=== PATIENT | male | born 1945 | race Caucasian/White ===

== ENCOUNTER 2016-10-29 18:04 | Inpatient (IN) | payer MEDICARE ==
[~2016-10-29] VITALS: Ht 175.3 cm; Wt 124.9 kg
[~2016-10-29 18:04] MED LIST: AMLO10 PO; ATEN-102 PO; ATOR40TA PO; CVS20TAB PO; GABA300C3 PO; INSU100V2 IJ; LANTUSP SQ; LASI20TA PO; LISI-366 PO; POTA-243 PO; POTA75TA PO; SERT-129 PO; WARF5TAB PO; Z.0.OXYGENDME NC
[2016-10-29 18:15] VITALS: BP 198/107; PULSE 85; RESP 19; TEMP 99.2; O2SAT 88
[2016-10-29 18:23] VITALS: O2SAT 88
[2016-10-29] MEDS ORDERED: methylPREDNISolone SOD SUCC 125 MG/2 ML VIAL IVP ONE (18:30)
[2016-10-29] MEDS ORDERED: SODIUM CHLORIDE 0.9% FLUSH 5 ML FLUSH IVF PRN (18:30)
[2016-10-29] MEDS ORDERED: FUROSEMIDE 40 MG/4 ML VIAL IVP ONE (18:30)
[2016-10-29] MEDS: RESP: ALBUTEROL 2.5 MG/IPRATROPIUM 0.5 MG NEB (SCH) INH ×2 (18:41→18:42)
--- NOTE | 2016-10-29 18:46 | RADHPO ---
EXAM DATE/TIME: 10/29/2016 18:25 [place] COMPARISON: CHEST SINGLE AP, February 13, 2016, 20:30. INDICATIONS : Shortness of breath since yesterday. MEDICAL HISTORY : Hypertension. Chronic obstructive pulmonary disease. Diabetes mellitus type II. Congestive heart failure. SURGICAL HISTORY : Cardiac stent. ENCOUNTER: Initial ACUITY: 2 days PAIN SCORE: 3/10 LOCATION: Bilateral chest FINDINGS: The heart size is within normal limits. The lungs demonstrate diffuse mixed interstitial and alveola r consolidation. Significant effusions are note clearly identified. CONCLUSION: Diffuse consolidation likely representing edema. Danie Hidalgo MD on October 29, 2016 at 18:39 Board Certified Radiologist. This report was verified electronically.
[2016-10-29 18:48] LABS: AUTOMATED NEUTROPHIL # 6.5 TH/MM3 (1.8-7.7); BASOPHIL % 0.4 % (0.0-2.0); EOSINOPHIL # 0.1 TH/MM3 (0-0.4); EOSINOPHIL % 1.1 % (0.0-4.0); HEMATOCRIT 36.2 % (39.0-51.0); HEMO FLAGS DIFF FINAL; LYMPH % 12.9 % (9.0-44.0); LYMPHOCYTE # 1.1 TH/MM3 (1.0-4.8); MEAN CELL VOLUME 88.7 FL (80.0-100.0); MEAN CORPUSCULAR HEMOGLOBIN 29.5 PG (27.0-34.0); MEAN CORPUSCULAR HGB CONC 33.3 % (32.0-36.0); MONO % 8.8 % (0.0-8.0); NEUT % 76.8 % (16.0-70.0); PLATELET COUNT 186 TH/MM3 (150-450); RED BLOOD COUNT 4.08 MIL/MM3 (4.50-5.90); RED CELL DISTRIBUTION WIDTH 13.7 % (11.6-17.2); WHITE BLOOD COUNT 8.5 TH/MM3 (4.0-11.0)
--- NOTE | 2016-10-29 18:48 | PD ---
HPI Chief Complaint: Respiratory Symptoms Time Seen by Provider: 18:14 Travel History International Travel<30 days: No Contact w/Intl Traveler<30days: No Traveled to known affect area: No History of Present Illness HPI The patient is a 71 year-old male who presents to the emergency department for shortness of breath. The patient states his shortness of breath started yesterday has progressively worsened. The patient states he has exertional shortness of breath, occasional anterior chest tightness, and a dry nonproductive cough. The patient denies any history of COPD, does have a history congestive heart failure. The patient is followed by physicist solid earth, Dr. Doyle, and a community reinvestment act officer, Dr. Maldonado. The patient's primary physician is at the [place] clinic. The patient states his symptoms are worse with exertion, mildly alleviated at rest, and he denies any outright orthopnea. The patient does not currently smoke. He does complain of chronic lower extremity edema. PFSH Past Medical History Hx Anticoagulant Therapy: Yes Arthritis: Yes Asthma: No Atrial Fibrillation: Yes Blood Disorders: No Depression: Yes Heart Rhythm Problems: Yes (PVC'S, 3RD DEGREE HEART BLOCK) Cancer: Yes (SKIN CANCER NOSE AND LEFT EAR, BACK) Cardiac Catheterization: Yes (JUNE 2008) Cardiovascular Problems: Yes High Cholesterol: Yes Chest Pain: Yes (06/21/08 CARDIAC CATH STENTS PLACED) Congestive Heart Failure: No COPD: Yes Cerebrovascular Accident: No Coronary Artery Disease: Yes Diabetes: Yes Patient Takes Glucophage: Yes Diminished Hearing: No Endocrine: Yes Genitourinary: No Headaches: Yes Hypertension: Yes Immune Disorder: No Implanted Vascular Access Dvce: No Musculoskeletal: Yes Neurologic: Yes Psychiatric: No Reproductive: No Respiratory: Yes Migraines: No Myocardial Infarction: Yes (X1) Seizures: No Sleep Apnea: Yes (CPAP MACHINE AT HOME) Thyroid Disease: No Past Surgical History Abdominal Surgery: No Cardiac Surgery: Yes (EP STUDY FOR CARDIAC RHYTHYM PROBLEMS) Coronary Stent: Yes (X1 STENT) Ear Surgery: No Endocrine Surgery: No Eye Surgery: No Genitourinary Surgery: No Gynecologic Surgery: No Oral Surgery: No Thoracic Surgery: No Other Surgery: Yes (CYST REMOVED FROM BACK AND LEFT OUT EAR AND NOSE CANCER REMOVED/BASEL CELL) Social History Alcohol Use: No (ALLERGIC TO ALCOHOL) Tobacco Use: No (QUIT JUL 24, 2015) Substance Use: No Allergies-Medications (Allergen,Severity, Reaction): Coded Allergies: No Known Allergies (Verified , 10/29/16) Reported Meds & Prescriptions Reported Meds & Active Scripts Active Reported Omeprazole 20 Mg Tab 20 Mg PO DAILY Furosemide 20 Mg Tab 20 Mg PO DAILY Atorvastatin (Atorvastatin Calcium) 80 Mg Tab 80 Mg PO HS Sertraline (Sertraline HCl) 100 Mg Tab 100 Mg PO DAILY Terazosin (Terazosin HCl) 2 Mg Cap 2 Mg PO HS Gabapentin 600 Mg Tab 600 Mg PO BID Amlodipine (Amlodipine Besylate) 5 Mg Tab 5 Mg PO DAILY Lubricant Opth Drops (Carboxymethylcellulose Sodium Opth Drops) 0.5% Drops 1 Drop EACH EYE QID Warfarin 5 Mg Tab 5 Mg PO DIRECTED Warfarin 2.5 Mg Tab 2.5 Mg PO DIRECTED M, W, F Metformin (Metformin HCl) 500 Mg Tab 500 Mg PO BIDPC With meals Potassium Chloride ER (Potassium Chloride) 10 Meq Cap 10 Meq PO DAILY Review of Systems Except as stated in HPI: all other systems reviewed are Neg General / Constitutional: No: Fever Cardiovascular: Positive: Chest Pain or Discomfort (tightness in the lower lungs is worse with inspiration), Dyspnea on exertion Respiratory: Positive: Cough, Shortness of Breath, Pleuritic Pain, No: Orthopnea Gastrointestinal: No: Nausea Musculoskeletal: Positive: Edema Neurologic: No: Dizziness Physical Exam Narrative GENERAL: Awake, alert, pleasant 71-year-old male who appears his stated age and is in mild respiratory distress. SKIN: Warm and dry. HEAD: Atraumatic. Normocephalic. EYES: No injection or drainage. ENT: No nasal bleeding or discharge. Mucous membranes pink and moist. NECK: Trachea midline. No JVD. CARDIOVASCULAR: Regular rate and rhythm. No murmur appreciated. RESPIRATORY: Mild tachypnea with a respiratory rate of 22. Diminished breath sounds in the bases with crackles bilaterally. GASTROINTESTINAL: Abdomen soft, non-tender, nondistended. Obese, no rebound tenderness. MUSCULOSKELETAL: No obvious deformities. No clubbing. No cyanosis. Bilateral lower extremity pitting edema. NEUROLOGICAL: Awake and alert. No obvious cranial nerve deficits. Motor grossly within normal limits. Normal speech. PSYCHIATRIC: Appropriate mood and affect; insight and judgment normal. Data Data Last Documented VS Vital Signs Date Time Temp Pulse Resp B/P Pulse Ox O2 Delivery O2 Flow Rate FiO2 10/29/16 19:21 88 18 210/74 95 Nasal Cannula 2 10/29/16 18:15 99.2 Orders Complete Blood Count With Diff (10/29/16 18:20) Comprehensive Metabolic Panel (10/29/16 18:20) B-Type Natriuretic Peptide (10/29/16 18:20) Act Partial Throm Time (Ptt) (10/29/16 18:20) Prothrombin Time / Inr (Pt) (10/29/16 18:20) Magnesium (Mg) (10/29/16 18:20) Ckmb (Isoenzyme) Profile (10/29/16 18:20) Troponin I (10/29/16 18:20) Iv Access Insert/Monitor (10/29/16 18:20) Electrocardiogram (10/29/16 18:20) Ecg Monitoring (10/29/16 18:20) Oximetry (10/29/16 18:20) Oxygen Administration (10/29/16 18:20) Chest, Single Ap (10/29/16 18:20) Sodium Chloride 0.9% Flush (Ns Flush) (10/29/16 18:30) Furosemide Inj (Lasix Inj) (10/29/16 18:30) Methylprednisolone So Succ Inj (Solumedr (10/29/16 18:30) Albuterol-Ipratropium Neb (Duoneb Neb) (10/29/16 18:30) CKMB (10/29/16 18:32) CKMB% (10/29/16 18:32) Ceftriaxone Inj (Rocephin Inj) (10/29/16 20:00) Azithromycin Inj (Zithromax Inj) (10/29/16 20:00) Admit To Inpatient (10/29/16 ) Vital Signs (Adult) Q4H (10/29/16 19:53) Activity Oob With Assistance (10/29/16 19:53) Environmental Issues Instructor / Telemetry .CONTINUOUS (10/29/16 19:53) Intake + Output MARISSA.QSHIFT (10/29/16 19:53) Sodium Chloride 0.9% Flush (Ns Flush) (10/29/16 20:00) Sodium Chloride 0.9% Flush (Ns Flush) (10/29/16 21:00) Basic Metabolic Panel (Bmp) (10/30/16 06:00) Complete Blood Count With Diff (10/30/16 06:00) Pt Request For Service (10/29/16 19:53) Naloxone Inj (Narcan Inj) (10/29/16 20:00) Inpatient Certification (10/29/16 ) Furosemide Inj (Lasix Inj) (10/30/16 09:00) Potassium Chloride Eff (K-Lyte Cl Eff) (10/29/16 20:00) Creatine Kinase (Cpk) (10/30/16 00:30) Creatine Kinase (Cpk) (10/30/16 06:30) Troponin I (10/30/16 00:30) Troponin I (10/30/16 06:30) Electrocardiogram (10/30/16 00:30) Electrocardiogram (10/30/16 06:30) Bedside Glucose MARISSA.AC&HS (10/29/16 19:56) ^ Blood Glucose Goal (Criteria (10/29/16 19:56) ^ Hypoglycemia 51 - 69 Mg/Dl (10/29/16 19:56) ^ Hypoglycemia 50 Mg/Dl Or < (10/29/16 19:56) ^ Notify Dr: Other (10/29/16 19:56) Dextrose 50% In Dora (Vial) Inj (D50w (Vi (10/29/16 20:00) Glucagon Inj (Glucagon Inj) (10/29/16 20:00) Insulin Aspart Supplemtl Scale (Novolog (10/29/16 21:00) Diet 1800 Ada Cons Carb (10/30/16 Breakfast) Admit Order (Ed Use Only) (10/29/16 19:56) Labs Laboratory Tests Test 10/29/16 18:32 White Blood Count 8.5 TH/MM3 Red Blood Count 4.08 MIL/MM3 Hemoglobin 12.1 GM/DL Hematocrit 36.2 % Mean Corpuscular Volume 88.7 FL Mean Corpuscular Hemoglobin 29.5 PG Mean Corpuscular Hemoglobin 33.3 % Concent Red Cell Distribution Width 13.7 % Platelet Count 186 TH/MM3 Mean Platelet Volume 10.3 FL Neutrophils (%) (Auto) 76.8 % Lymphocytes (%) (Auto) 12.9 % Monocytes (%) (Auto) 8.8 % Eosinophils (%) (Auto) 1.1 % Basophils (%) (Auto) 0.4 % Neutrophils # (Auto) 6.5 TH/MM3 Lymphocytes # (Auto) 1.1 TH/MM3 Monocytes # (Auto) 0.8 TH/MM3 Eosinophils # (Auto) 0.1 TH/MM3 Basophils # (Auto) 0.0 TH/MM3 CBC Comment DIFF FINAL Differential Comment Prothrombin Time 28.6 SEC Prothromb Time International 2.5 RATIO Ratio Activated Partial 37.6 SEC Thromboplast Time Sodium Level 143 MEQ/L Potassium Level 3.5 MEQ/L Chloride Level 107 MEQ/L Carbon Dioxide Level 27.3 MEQ/L Anion Gap 9 MEQ/L Blood Urea Nitrogen 11 MG/DL Creatinine 1.00 MG/DL Estimat Glomerular Filtration 74 ML/MIN Rate Random Glucose 192 MG/DL Calcium Level 8.3 MG/DL Magnesium Level 1.7 MG/DL Total Bilirubin 0.5 MG/DL Aspartate Amino Transf 14 U/L (AST/SGOT) Alanine Aminotransferase 27 U/L (ALT/SGPT) Alkaline Phosphatase 85 U/L Total Creatine Kinase 191 U/L Creatine Kinase MB 2.8 NG/ML Troponin I LESS THAN 0.02 NG/ML B-Type Natriuretic Peptide 157 PG/ML Total Protein 6.8 GM/DL Albumin 3.4 GM/DL [facility] Medical Decision Making Medical Screen Exam Complete: Yes Emergency Medical Condition: Yes Medical Record Reviewed: Yes Interpretation(s) EKG reveals normal sinus rhythm with a rate of 79. Q wave noted in lead 3. Inverted T-wave noted in lead aVL. Last Impressions Chest X-Ray 10/29/16 1820 Signed Impressions: Service Date/Time: Saturday, October 29, 2016 18:25 - CONCLUSION: Diffuse consolidation likely representing edema. Danie Hidalgo MD Laboratory Tests Test 10/29/16 18:32 White Blood Count 8.5 TH/MM3 Red Blood Count 4.08 MIL/MM3 Hemoglobin 12.1 GM/DL Hematocrit 36.2 % Mean Corpuscular Volume 88.7 FL Mean Corpuscular Hemoglobin 29.5 PG Mean Corpuscular Hemoglobin 33.3 % Concent Red Cell Distribution Width 13.7 % Platelet Count 186 TH/MM3 Mean Platelet Volume 10.3 FL Neutrophils (%) (Auto) 76.8 % Lymphocytes (%) (Auto) 12.9 % Monocytes (%) (Auto) 8.8 % Eosinophils (%) (Auto) 1.1 % Basophils (%) (Auto) 0.4 % Neutrophils # (Auto) 6.5 TH/MM3 Lymphocytes # (Auto) 1.1 TH/MM3 Monocytes # (Auto) 0.8 TH/MM3 Eosinophils # (Auto) 0.1 TH/MM3 Basophils # (Auto) 0.0 TH/MM3 CBC Comment DIFF FINAL Differential Comment Prothrombin Time 28.6 SEC Prothromb Time International 2.5 RATIO Ratio Activated Partial 37.6 SEC Thromboplast Time Sodium Level 143 MEQ/L Potassium Level 3.5 MEQ/L Chloride Level 107 MEQ/L Carbon Dioxide Level 27.3 MEQ/L Anion Gap 9 MEQ/L Blood Urea Nitrogen 11 MG/DL Creatinine 1.00 MG/DL Estimat Glomerular Filtration 74 ML/MIN Rate Random Glucose 192 MG/DL Calcium Level 8.3 MG/DL Magnesium Level 1.7 MG/DL Total Bilirubin 0.5 MG/DL Aspartate Amino Transf 14 U/L (AST/SGOT) Alanine Aminotransferase 27 U/L (ALT/SGPT) Alkaline Phosphatase 85 U/L Total Creatine Kinase 191 U/L Creatine Kinase MB 2.8 NG/ML Troponin I LESS THAN 0.02 NG/ML B-Type Natriuretic Peptide 157 PG/ML Total Protein 6.8 GM/DL Albumin 3.4 GM/DL Differential Diagnosis Differential diagnosis includes congestive heart failure, flash pulmonary edema , pleural effusion, acute coronary syndrome, COPD, bronchitis, pneumonia, pulmonary embolism. Narrative Course IV was established, labs are drawn and sent, and the patient was placed on cardiac telemetry monitoring and continuous pulse oximeter monitoring. EKG was ordered and interpreted. Chest x-ray was ordered. The patient was administered duo nebs 2 and Lasix 40 mg intravenously. Chest x-ray reveals bilateral pulmonary edema most likely consistent with congestive heart failure. The patient's initial oxygen saturation was 88% on room air, therefore, was placed on 2 L which brought his oxygen saturation up to 92% with improvement of his symptoms. The patient's BNP was only 157, troponin was negative at 0.02. The patient appears to have mild congestive heart failure, atypical pneumonia would be another possibility. Therefore, patient was covered with Rocephin and Zithromax. The patient does have hypoxia, therefore, will require admission, gentle diuresis, and possible follow-up with his community reinvestment act officer, Dr. Maldonado. [facility]. Physician Communication Physician Communication The patient's primary [facility] [place] [facility], [facility] I discussed the patient with Dr. Blankenship who agrees with admission. Diagnosis Primary Impression: CHF (congestive heart failure) Qualified Code: I50.9 - Acute congestive heart failure, unspecified congestive heart failure type Additional Impression: Hypoxia Condition: Stable Carlos Sagastume MD Oct 29, 2016 18:47
[2016-10-29] MEDS ORDERED: TERA2CAP3 PO (18:49)
[2016-10-29] MEDS ORDERED: GABA600T PO (18:49)
[2016-10-29] MEDS ORDERED: WARF-23 PO (18:49)
[2016-10-29] MEDS ORDERED: WARF-18 PO (18:49)
[2016-10-29] MEDS ORDERED: FURO20TA PO (18:49)
[2016-10-29] MEDS ORDERED: ATOR1TAB18 PO (18:49)
[2016-10-29] MEDS ORDERED: POTA10CA PO (18:49)
[2016-10-29] MEDS ORDERED: SERT-129 PO (18:49)
[2016-10-29] MEDS ORDERED: AMLO5TAB2 PO (18:49)
[2016-10-29] MEDS ORDERED: LUBR0.5D2 EACH EYE (18:49)
[2016-10-29] MEDS ORDERED: METF500T PO (18:49)
[2016-10-29] MEDS ORDERED: OMEP20TA PO (18:49)
[2016-10-29 18:56] LABS: CHLORIDE 107 MEQ/L (98-107); POTASSIUM 3.5 MEQ/L (3.5-5.1); SODIUM (NA) 143 MEQ/L (136-145)
[2016-10-29 19:00] LABS: ANION GAP 9 MEQ/L (5-15); APTT (PATIENT) 37.6 SEC (24.3-30.1); BICARBONATE 27.3 MEQ/L (21.0-32.0); BLOOD UREA NITROGEN 11 MG/DL (7-18); INTERNATIONAL NORMALIZED RATIO 2.5 RATIO; MAGNESIUM 1.7 MG/DL (1.5-2.5); PROTHROMBIN TIME - PATIENT 28.6 SEC (9.8-11.6)
[2016-10-29 19:03] LABS: ALT (GPT) 27 U/L (12-78); AST (GOT) 14 U/L (15-37); GLOMERULAR FILTRATION RATE 74 ML/MIN (>89)
[2016-10-29 19:05] LABS: TOTAL BILIRUBIN ADULT 0.5 MG/DL (0.2-1.0)
[2016-10-29 19:06] LABS: ALKALINE PHOSPHATASE 85 U/L (45-117); CREATINE KINASE 191 U/L (39-308)
[2016-10-29 19:20] LABS: CKMB 2.8 NG/ML (0.5-3.6)
[2016-10-29 19:21] VITALS: BP 210/74; PULSE 88; RESP 18; O2SAT 95
[2016-10-29 20:00] VITALS: BP 200/78; PULSE 84; RESP 18; O2SAT 95
[2016-10-29] MEDS ORDERED: DEXTROSE 50% IN WATER 50 ML VIAL(D50) IV PUSH PRN (20:00)
[2016-10-29] MEDS ORDERED: POTASSIUM CHLORIDE 25 MEQ EFFERVESCENT TAB PO ONE (20:00)
[2016-10-29] MEDS ORDERED: AZITHROMYCIN INJ 500 MG in SODIUM CHLOR 0.9% 250 ML INJ 250 ML IV ONE (20:00)
[2016-10-29] MEDS ORDERED: SODIUM CHLORIDE 0.9% FLUSH 5 ML FLUSH FLUSH PRN (20:00)
[2016-10-29] MEDS ORDERED: cefTRIAXone INJ 1,000 MG in SODIUM CHLORIDE 0.9% INJ 100 ML IV ONE (20:00)
[2016-10-29] MEDS ORDERED: GLUCAGON 1 MG/ML VIAL OTHER PRN (20:00)
[2016-10-29] MEDS ORDERED: NALOXONE HCL 0.4 MG/ML AMP IV PRN (20:00)
[2016-10-29] MEDS: SODIUM CHLORIDE 0.9% FLUSH 5 ML FLUSH FLUSH SCH (21:00)
[2016-10-29 21:21] VITALS: BP 204/76; PULSE 86; RESP 18; O2SAT 96
[2016-10-29] MEDS: INSULIN ASPART SUPPLEMENTAL SCALE SQ SCH (21:48)
[2016-10-29 21:54] VITALS: BP 178/87; PULSE 80; RESP 18; TEMP 99.4; O2SAT 96
[2016-10-30] VITALS (7 sets, daily range): BP systolic 145–178; BP diastolic 78–86; PULSE 69–84; RESP 18; TEMP 96.4–98.9; O2SAT 95–99
[2016-10-30 01:09] LABS: CREATINE KINASE 191 U/L (39-308)
[2016-10-30 06:14] LABS: AUTOMATED NEUTROPHIL # 8.2 TH/MM3 (1.8-7.7); BASOPHIL % 0.3 % (0.0-2.0); HEMATOCRIT 36.6 % (39.0-51.0); HEMO FLAGS DIFF FINAL; LYMPH % 4.6 % (9.0-44.0); LYMPHOCYTE # 0.4 TH/MM3 (1.0-4.8); MEAN CELL VOLUME 90.3 FL (80.0-100.0); MEAN CORPUSCULAR HEMOGLOBIN 29.5 PG (27.0-34.0); MEAN CORPUSCULAR HGB CONC 32.7 % (32.0-36.0); MONO % 1.5 % (0.0-8.0); NEUT % 93.6 % (16.0-70.0); PLATELET COUNT 177 TH/MM3 (150-450); RED BLOOD COUNT 4.05 MIL/MM3 (4.50-5.90); RED CELL DISTRIBUTION WIDTH 13.8 % (11.6-17.2); WHITE BLOOD COUNT 8.8 TH/MM3 (4.0-11.0)
[2016-10-30 06:24] LABS: CHLORIDE 105 MEQ/L (98-107); POTASSIUM 3.9 MEQ/L (3.5-5.1); SODIUM (NA) 143 MEQ/L (136-145)
[2016-10-30 06:28] LABS: ANION GAP 11 MEQ/L (5-15); BICARBONATE 27.5 MEQ/L (21.0-32.0)
[2016-10-30 06:29] LABS: BLOOD UREA NITROGEN 12 MG/DL (7-18)
[2016-10-30 06:32] LABS: GLOMERULAR FILTRATION RATE 76 ML/MIN (>89)
[2016-10-30 06:35] LABS: CREATINE KINASE 167 U/L (39-308)
[2016-10-30] MEDS: INSULIN ASPART SUPPLEMENTAL SCALE SQ SCH ×2 (06:35→12:14)
[2016-10-30] MEDS ORDERED: FUROSEMIDE 40 MG/4 ML VIAL IV PUSH SCH (09:00)
[2016-10-30] MEDS: SODIUM CHLORIDE 0.9% FLUSH 5 ML FLUSH FLUSH SCH (09:12)
[2016-10-30] MEDS ORDERED: amLODIPine BESYLATE 5 MG TAB PO SCH (11:00)
[2016-10-30] MEDS ORDERED: SERTRALINE HCL 100 MG TAB PO SCH (11:00)
[2016-10-30] MEDS ORDERED: POTASSIUM CHLORIDE 10 MEQ CAP PO SCH (11:00)
[2016-10-30] MEDS ORDERED: PANTOPRAZOLE SOD 20 MG DELAYED RELEASE TAB PO SCH (11:00)
[2016-10-30] MEDS ORDERED: metFORMIN HCL 500 MG TAB PO SCH (11:00)
[2016-10-30] MEDS ORDERED: GABAPENTIN 300 MG CAP PO SCH (11:00)
--- NOTE | 2016-10-30 11:29 | EKG ---
Date Performed: 10/29/2016 Time Performed: 18:36:56 PTAGE: 71 years EKG: Sinus rhythm Poor R wave progression Possible lead placement versus septal infarct Nonspecific lateral ST-T wave abnormality Since previous tracing, no significant change suspected. Abnormal ECG PREVIOUS TRACING : 02/13/2016 23.16 DOCTOR: Nagi Silverman Interpretating Date/Time 10/30/2016 11:27:17
--- NOTE | 2016-10-30 11:32 | HHI.HP ---
[facility] Admission Diagnosis congestive heart failure/pulmonary edema with hypoxia Diagnoses: (1) Acute on chronic diastolic congestive heart failure Diagnosis: Principal (2) Chronic atrial fibrillation Diagnosis: Secondary (3) Chronic obstructive pulmonary disease Diagnosis: Secondary (4) Hypertension Diagnosis: Secondary (5) Hyperlipidemia Diagnosis: Secondary (6) Obstructive sleep apnea Diagnosis: Secondary Chief Complaint: Shortness of breath and dyspnea Travel History International Travel<30 Days: No Contact w/Intl Traveler <30 Da: No Traveled to Known Affected Are: No History of Present Illness 71-year-old male with known history of congestive heart failure, hypertension, hyperlipidemia, coronary disease, atrial fibrillation status post ablation, sleep apnea, chronic obstructive pulmonary disease, who presented to hospital because of one day history of shortness of breath and dyspnea. Patient states that her normal state of health until yesterday he had significant shortness of breath and dyspnea. Patient states that he did not have any orthopnea, paroxysmal nocturnal dyspnea, dyspnea on exertion. Because of his significant cardiac history they came to the ER for evaluation. Upon evaluation patient did have accelerated hypertension, hypoxia with O2 sats 88%. Chest x-ray which did show diffuse consolidation likely representing edema. Patient was given Lasix in the emergency department. Patient states that he is feeling much better today. He is asking "when can I go home". Patient is asymptomatic at this time. Has good O2 saturations. No signs of CHF exacerbation. Patient denies any chest pain, shortness breath, dyspnea, dyspnea on exertion, orthopnea. Review of Systems Constitutional: DENIES: Diaphoretic episodes, Fatigue, Fever, Weight gain, Weight loss, Chills, Dizziness, Change in appetite, Night Sweats Eyes: DENIES: Blurred vision, Diplopia, Eye inflammation, Eye pain, Vision loss , Double Vision Ears, nose, mouth, throat: DENIES: Vertigo, Nasal discharge, Hoarseness, Ear Pain, Running Nose, Sinus Pain Respiratory: COMPLAINS OF: Shortness of breath, DENIES: Apneas, Cough, Snoring , Wheezing, Hemoptysis, Sputum production Cardiovascular: COMPLAINS OF: Lower Extremity Edema (chronic), DENIES: Chest pain, Palpitations, Syncope, Dyspnea on Exertion, Orthopnea Gastrointestinal: DENIES: Abdominal pain, Black stools, Bloody stools, Constipation, Diarrhea, Nausea, Vomiting, Difficulty Swallowing, Anorexia Neurologic: DENIES: Abnormal gait, Headache, Localized weakness, Paresthesias, Seizures, Speech Problems, Tremor, Poor Balance Past Family Social History Past Medical History Hypertension Hyperlipidemia Congestive heart failure Atrial fibrillation status post ablation Chronic obstructive pulmonary disease Obstructive sleep apnea Diabetes Past Surgical History Skin cancer taken off his nose Cardiac ablation Cardiac catheterization with stenting Reported Medications Reported Meds & Active Scripts Active Reported Omeprazole 20 Mg Tab 20 Mg PO DAILY Furosemide 20 Mg Tab 20 Mg PO DAILY Atorvastatin (Atorvastatin Calcium) 80 Mg Tab 80 Mg PO HS Sertraline (Sertraline HCl) 100 Mg Tab 100 Mg PO DAILY Terazosin (Terazosin HCl) 2 Mg Cap 2 Mg PO HS Gabapentin 600 Mg Tab 600 Mg PO BID Amlodipine (Amlodipine Besylate) 5 Mg Tab 5 Mg PO DAILY Lubricant Opth Drops (Carboxymethylcellulose Sodium Opth Drops) 0.5% Drops 1 Drop EACH EYE QID Warfarin 5 Mg Tab 5 Mg PO DIRECTED Warfarin 2.5 Mg Tab 2.5 Mg PO DIRECTED M, W, F Metformin (Metformin HCl) 500 Mg Tab 500 Mg PO BIDPC With meals Potassium Chloride ER (Potassium Chloride) 10 Meq Cap 10 Meq PO DAILY Allergies: Coded Allergies: No Known Allergies (Verified , 10/29/16) Family History Reviewed is significant for mother having kidney disease. Patient states that her father just 2 years ago but he does not recall any chronic medical illnesses Social History Patient quit smoking cigarettes approximately 2 years ago, however he still Vapes. Patient smoked for over 60 years at a pack a cigarettes a day. Patient denies any alcohol or illicit drugs Physical Exam Vital Signs Vital Signs Date Time Temp Pulse Resp B/P Pulse Ox O2 Delivery O2 Flow Rate FiO2 10/30/16 08:00 97.6 69 18 178/84 95 10/30/16 07:50 95 Nasal Cannula 1.00 10/30/16 05:00 96.4 84 18 173/82 97 10/30/16 01:50 99 Nasal Cannula 2.00 10/30/16 00:00 98.9 79 18 145/86 95 10/29/16 21:54 99.4 80 18 178/87 96 2/13/17 21:22 84 18 95 Nasal Cannula 2 10/29/16 21:21 86 18 204/76 96 10/29/16 20:00 84 18 200/78 95 10/29/16 19:21 88 18 210/74 95 Nasal Cannula 2 10/29/16 18:24 Nasal Cannula 2 10/29/16 18:23 88 Room Air 10/29/16 18:23 94 Nasal Cannula 2 10/29/16 18:15 99.2 85 19 198/107 88 Physical Exam GENERAL: Well-developed, well-nourished, in no acute distress. alert and orientated HEENT: Head is normocephalic without any lesions or masses noted. Facial features are symmetric. Eyes: Pupils equal round reactive to light. Extraocular muscles are intact. Conjunctivae were clear. Oropharyngeal: Pharynx without any erythema edema. Tongue is midline without deviation. Buccal mucosa is moist without any masses or lesions NECK: Supple without any masses. Trachea midline no deviation. No JVD, no bruits are appreciated CARDIAC: Regular rhythm, regular rate. S1/S2 are heard. No murmurs gallops or rubs. LUNGS: Clear to auscultation bilaterally. No wheeze, rhonchi or rales. No use of accessory muscles on inspiration or expiration. ABDOMEN: Soft, nontender. Nondistended. Bowel sounds heard in all 4 quadrants. No organomegaly or masses. Negative rebound, negative guarding EXTREMITIES: No edema, pulses are equal bilaterally. No cyanosis or clubbing NEUROLOGY: Mood and affect appear appropriate. Cranial nerves II through XII grossly intact. Muscle strength 5/5 in upper and lower extremities bilaterally. Deep tendon reflexes are 2+ in upper and lower extremities bilaterally. Laboratory Laboratory Tests Test 10/29/16 10/30/16 10/30/16 18:32 00:43 05:55 White Blood Count 8.5 8.8 Red Blood Count 4.08 4.05 Hemoglobin 12.1 12.0 Hematocrit 36.2 36.6 Mean Corpuscular Volume 88.7 90.3 Mean Corpuscular Hemoglobin 29.5 29.5 Mean Corpuscular Hemoglobin 33.3 32.7 Concent Red Cell Distribution Width 13.7 13.8 Platelet Count 186 177 Mean Platelet Volume 10.3 9.9 Neutrophils (%) (Auto) 76.8 93.6 Lymphocytes (%) (Auto) 12.9 4.6 Monocytes (%) (Auto) 8.8 1.5 Eosinophils (%) (Auto) 1.1 0.0 Basophils (%) (Auto) 0.4 0.3 Neutrophils # (Auto) 6.5 8.2 Lymphocytes # (Auto) 1.1 0.4 Monocytes # (Auto) 0.8 0.1 Eosinophils # (Auto) 0.1 0.0 Basophils # (Auto) 0.0 0.0 CBC Comment DIFF FINAL DIFF FINAL Differential Comment Prothrombin Time 28.6 Prothromb Time International 2.5 Ratio Activated Partial 37.6 Thromboplast Time Sodium Level 143 143 Potassium Level 3.5 3.9 Chloride Level 107 105 Carbon Dioxide Level 27.3 27.5 Anion Gap 9 11 Blood Urea Nitrogen 11 12 Creatinine 1.00 0.98 Estimat Glomerular Filtration 74 76 Rate Random Glucose 192 259 Calcium Level 8.3 8.3 Magnesium Level 1.7 Total Bilirubin 0.5 Aspartate Amino Transf 14 (AST/SGOT) Alanine Aminotransferase 27 (ALT/SGPT) Alkaline Phosphatase 85 Total Creatine Kinase 191 191 167 Creatine Kinase MB 2.8 Troponin I LESS THAN 0.02 LESS THAN 0.02 LESS THAN 0.02 B-Type Natriuretic Peptide 157 Total Protein 6.8 Albumin 3.4 Result Diagram: 10/30/1655 10/30/16554 Imaging Last Impressions Chest X-Ray 10/29/16 1820 Signed Impressions: Service Date/Time: Saturday, October 29, 2016 18:25 - CONCLUSION: Diffuse consolidation likely representing edema. Danie Hidalgo MD Assessment and Plan Assessment and Plan Acute on chronic diastolic congestive heart failure Patient presented with 1 day history of shortness of breath, dyspnea. Symptoms resolved at this time Patient given Lasix 40 mg IV in the emergency department, patient had nice response with over 2 L a urinary output We'll need to increase his outpatient Lasix Patient counseled on fluid restriction, patient states that he was drinking at least 2 cups of coffee, 3 sodas, 3 big bottles of water on a daily basis. I notified him to drink approximately 1500 cc daily Cardiac enzymes were performed and reviewed by myself which do not indicate any acute abnormality or acute coronary event Mildly elevated BNP Obtain echocardiogram Start MICHELLE inhibitor and beta kael (patient states he takes lisinopril at home but is unaware of dose) -F/u with Dr. 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 Hypertension, hyperlipidemia, coronary artery disease, atrial fibrillation status post ablation Continue home medications Patient anticoagulated with Coumadin with INR 2.5 Chronic obstructive pulmonary disease Continue O2 supplementation to maintain O2 sats greater than 92% Diabetes Continue metformin Accu-Cheks with sliding scale insulin DVT prevention Patient on Coumadin with INR 2.5 Written by Eliseo Sawant PA-C, acting as scribe for Dr. Henry on 10/30/16 at 14:00 The documentation accurately reflects the work and decisions performed face-to- face by Dr. Henry on 10/30/16 at 14:00. Discharge disposition Discharge home in stable condition Activity: Ad robby. Diet: Healthy heart diet, diabetic diet, fluid restriction Medications per medication reconciliation Follow-up primary medical doctor in one week Problem Qualifiers (1) Chronic obstructive pulmonary disease: Qualified Code: J44.9 - Chronic obstructive pulmonary disease, unspecified COPD type (2) Hypertension: Qualified Code: I15.9 - Secondary hypertension (3) Hyperlipidemia: Qualified Code: E78.5 - Hyperlipidemia, unspecified hyperlipidemia type Eliseo Sawant Oct 30, 2016 11:32 Irene Henry MD Oct 30, 2016 14:33
[2016-10-30] MEDS ORDERED: FURO1TAB60 PO (11:35)
[2016-10-30] MEDS ORDERED: POTA-163 PO (11:35)
--- NOTE | 2016-10-30 11:35 | HHI.DCPOC ---
Discharge Care Plan Diagnosis: (1) Acute on chronic diastolic congestive heart failure Goals to Promote Your Health * To prevent worsening of your condition and complications * To maintain your health at the optimal level Directions to Meet Your Goals Take your medications as prescribed Follow your dietary instruction Follow activity as directed Keep your appointments as scheduled Take your immunizations and boosters as scheduled If your symptoms worsen call your PCP, if no PCP go to Urgent Care Center or Emergency Room Smoking is Dangerous to Your Health. Avoid second hand smoke Call the 24-hour hour crisis hotline for domestic abuse at Eliseo Sawant Oct 30, 2016 11:35
[2016-10-30] MEDS ORDERED: METO25TA3 PO (11:44)
[2016-10-30] MEDS ORDERED: LISI-519 PO (11:44)
[2016-10-30] MEDS ORDERED: LISINOPRIL 5 MG TAB PO SCH (11:45)
[2016-10-30] MEDS ORDERED: METOPROLOL TARTRATE 25 MG TAB PO SCH (11:45)
[2016-10-30] MEDS ORDERED: PILL SPLITTER OTHER PRN (12:15)
--- NOTE | 2016-10-30 17:35 | EC ---
Study Study Date:10/30/2016 STUDY CONCLUSIONS SUMMARY - Procedure narrative: Image quality was fair. The study was technically limited due to poor acoustic window availability. - Left ventricle: The cavity size was normal. Systolic function was normal. The estimated ejection fraction was in the range of 60% to 65%. Although no diagnostic regional wall motion abnormality was identified, this possibility cannot be completely excluded on the basis of this study. - Left atrium: The atrium was mildly dilated. If LV function is below 40, please consider prescribing an ACEI or ARB or document rationale for non-use. PROCEDURE DATA STUDY STATUS: Elective. Procedure: Transthoracic echocardiography. Image quality was fair. The study was technically limited due to poor acoustic window availability. Scanning was performed from the parasternal, apical, and subcostal acoustic windows. Study completion: The patient tolerated the procedure well. Transthoracic echocardiography. M-mode, complete 2D, complete spectral Doppler, and color Doppler. Patient status: Inpatient. CARDIAC ANATOMY LEFT VENTRICLE: The cavity size was normal. Systolic function was normal. The estimated ejection fraction was in the range of 60% to 65%. Although no diagnostic regional wall motion abnormality was identified, this possibility cannot be completely excluded on the basis of this study. AORTIC VALVE: The valve appears to be grossly normal. Doppler: There was no stenosis. No significant regurgitation. MITRAL VALVE: The valve appears to be grossly normal. Doppler: There was no evidence for stenosis. No significant regurgitation. Peak gradient: 7mm Hg (D). LEFT ATRIUM: The atrium was mildly dilated. PULMONIC VALVE: Not well visualized. Doppler: There was no evidence for stenosis. No significant regurgitation. TRICUSPID VALVE: The valve appears to be grossly normal. Doppler: There was no evidence for stenosis. Trace regurgitation. PERICARDIUM: There was no pericardial effusion. BASIC MEASUREMENTS ADULT Normal Left ventricle LV internal dimension, ED, chordal level, 45.3 mm 43-52 PLAX LV internal dimension, ES, chordal level, 32.3 mm 23-38 PLAX Fractional shortening, chordal level, PLAX *29 % >29 LV posterior wall thickness, ED 8.46 mm IVS/LVPW ratio, ED *1.47 <1.3 Ventricular septum Septal thickness, ED 12.4 mm Aortic valve Leaflet separation 20 mm 15-26 Left atrium Anterior-posterior dimension 46 mm Right ventricle RV internal dimension, ED, PLAX 24 mm 19-38 BASIC MEASUREMENTS ADULT Normal Aortic valve Leaflet separation 20 mm 15-26 Aorta Root diameter, ED 32 mm 20-37 DOPPLER MEASUREMENTS ADULT Normal Main pulmonary artery Pressure, S 25 mm Hg =30 Mitral valve Peak E-wave velocity 131 cm/s Peak A-wave velocity 48.7 cm/s Peak gradient, D 7 mm Hg Peak E/A ratio 2.7 Tricuspid valve Regurgitant peak velocity 195 cm/s Peak RV-RA gradient, S 15 mm Hg Maximal regurgitant velocity 195 cm/s Systemic veins Estimated CVP 10 mm Hg Right ventricle RV pressure, S 25 mm Hg <30 LEGEND: Mean values are shown as u=mean value. Asterisk (*) diane values outside specified normal range. Prepared and signed by Adrian Johnson [id number]
--- NOTE | 2016-10-30 17:42 | EKG ---
Date Performed: 10/30/2016 Time Performed: 01:02:46 PTAGE: 71 years EKG: Sinus rhythm Lateral ST-T changes are nonspecific Compared to prior tracing no significant change Borderline ECG PREVIOUS TRACING : 10/29/2016 18.36 DOCTOR: Nagi Silverman Interpretating Date/Time 10/30/2016 17:40:58
--- NOTE | 2016-10-30 18:20 | EKG ---
Date Performed: 10/30/2016 Time Performed: 06:07:16 PTAGE: 71 years EKG: Sinus bradycardia Prolonged QT interval Compared to prior tracing no significant change Bor derline ECG PREVIOUS TRACING : 10/30/2016 01.02 DOCTOR: Nagi Silverman Interpretating Date/Time 10/30/2016 18:19:02
[2016-10-30] MEDS ORDERED: TERAZOSIN HCL 1 MG CAP PO SCH (21:00)
[2016-10-30] MEDS ORDERED: ATORVASTATIN 40 MG TAB PO SCH (21:00)
[2016-10-31] MEDS ORDERED: POTASSIUM CHLORIDE 10 MEQ CONTROLLED RELEASE TAB PO SCH (09:00)
== END 2016-10-30 16:40 | disposition home or self-care (01) | DRG 293 ==
LOC: PHED 18:04 → PHEDA 19:57 → PH3A 21:10
PROVIDERS: ADMIT Family Medicine; ATTEND Family Medicine
PROC: 3E0F7GC Introduction of Other Therapeutic Substance into Respiratory Tract, Via Natural or Artificial Opening (ICD-10-PCS; principal; 2016-10-29)
DX: I50.33 Acute on chronic diastolic (congestive) heart failure (principal); Z99.81 Dependence on supplemental oxygen; I15.9 Secondary hypertension, unspecified; I48.2 Chronic atrial fibrillation; J44.9 Chronic obstructive pulmonary disease, unspecified; E11.9 Type 2 diabetes mellitus without complications; E78.00 Pure hypercholesterolemia, unspecified; M19.90 Unspecified osteoarthritis, unspecified site; R09.02 Hypoxemia; Z85.828 Personal history of other malignant neoplasm of skin; I25.10 Atherosclerotic heart disease of native coronary artery without angina pectoris; Z95.5 Presence of coronary angioplasty implant and graft; Z79.84 Long term (current) use of oral hypoglycemic drugs; I25.2 Old myocardial infarction; G47.33 Obstructive sleep apnea (adult) (pediatric); Z87.891 Personal history of nicotine dependence; Z79.01 Long term (current) use of anticoagulants; E78.5 Hyperlipidemia, unspecified
CPT/HCPCS: 71010; 80048; 80053; 82550; 82552; 82948; 83735; 83880; 84484; 85025; 85610; 85730; 93005; 93306; 94640; 94664; 96374; 96375; J0456; J0696; J1815; J1940; J2930; J7050

== ENCOUNTER → 2018-02-25 | Outpatient (CLI) | payer MEDICARE ==
[~2018-02-25] MED LIST changes: -AMLO10 PO; +AMLO5TAB2 PO; -ATEN-102 PO; +ATEN100T PO; -ATOR40TA PO; +ATOR80TA45 PO; -CVS20TAB PO; +EMPA1TAB3 PO; +FURO1TAB60 PO; +FURO20TA PO; -GABA300C3 PO; +GABA600T PO; -INSU100V2 IJ; +LANTUS2P SQ; -LANTUSP SQ; -LASI20TA PO; -LISI-366 PO; +LISI-519 PO; +LISI40TA PO; +LUBR0.5D2 EACH EYE; +MAPA325T PO; +METF500T PO; +METO25TA3 PO; +NOVOLOGP2 SQ; +OMEP20TA93 PO; +POTA-163 PO; -POTA-243 PO; -POTA75TA PO; +TERA2CAP3 PO; +WARF-18 PO; +WARF-23 PO; -WARF5TAB PO; -Z.0.OXYGENDME NC
[2018-02-25 10:02] LABS: AUTOMATED NEUTROPHIL # 3.8 TH/MM3 (1.8-7.7); BASOPHIL # 0.1 TH/MM3 (0-0.2); EOSINOPHIL # 0.2 TH/MM3 (0-0.4); EOSINOPHIL % 3.3 % (0.0-4.0); HEMATOCRIT 38.7 % (39.0-51.0); HEMOGLOBIN 12.9 GM/DL (13.0-17.0); LYMPH % 21.5 % (9.0-44.0); LYMPHOCYTE # 1.3 TH/MM3 (1.0-4.8); MEAN CELL VOLUME 93.9 FL (80.0-100.0); MEAN CORPUSCULAR HEMOGLOBIN 31.1 PG (27.0-34.0); MEAN CORPUSCULAR HGB CONC 33.2 % (32.0-36.0); MEAN PLATELET VOLUME 8.8 FL (7.0-11.0); MONO % 12.6 % (0.0-8.0); MONOCYTE # 0.8 TH/MM3 (0-0.9); NEUT % 61.6 % (16.0-70.0); PLATELET COUNT 254 TH/MM3 (150-450); RED BLOOD COUNT 4.13 MIL/MM3 (4.50-5.90); RED CELL DISTRIBUTION WIDTH 13.5 % (11.6-17.2); WHITE BLOOD COUNT 6.2 TH/MM3 (4.0-11.0)
[2018-02-25 10:13] LABS: PROTHROMBIN TIME - PATIENT 30.2 SEC (9.8-11.6)
[2018-02-25 10:16] LABS: BICARBONATE 28.5 MEQ/L (21.0-32.0); CALCIUM 9.4 MG/DL (8.5-10.1); CREATININE 1.46 MG/DL (0.60-1.30)
--- NOTE | 2018-02-25 13:58 | EKG ---
Date Performed: 02/25/2018 Time Performed: 09:56:20 PTAGE: 72 years EKG: SINUS BRADYCARDIA BORDERLINE ECG No significant change from prior electrocardiogram. PREVIOUS TRACING : 10/30/2016 06.07 DOCTOR: Juma Maldonado Interpretating Date/Time 02/25/2018 13:57:25
== END ==
LOC: CPRE 09:34
PROVIDERS: ATTEND Orthopaedic Surgery Orthopaedic Surgery of the Spine
DX: Z01.812 Encounter for preprocedural laboratory examination (principal); Z01.810 Encounter for preprocedural cardiovascular examination; M48.061 Spinal stenosis, lumbar region without neurogenic claudication; R94.31 Abnormal electrocardiogram [ECG] [EKG]; Z79.01 Long term (current) use of anticoagulants; Z01.89 Encounter for other specified special examinations
CPT/HCPCS: 36415; 80048; 85025; 85610; 85730; 93005

== ENCOUNTER → 2018-03-10 | Outpatient (CLI) | payer MEDICARE ==
[~2018-03-10] MED LIST changes: -FURO1TAB60 PO; +HYDR-3288 PO; -LISI-519 PO; -LUBR0.5D2 EACH EYE; -METO25TA3 PO; -OMEP20TA93 PO; -POTA-163 PO; +SPIR50TA PO; -WARF-18 PO
[2018-03-10 08:29] LABS: INTERNATIONAL NORMALIZED RATIO 1.2 RATIO; PROTHROMBIN TIME - PATIENT 11.9 SEC (9.8-11.6)
== END ==
LOC: CLAB 07:51
PROVIDERS: ATTEND Orthopaedic Surgery Orthopaedic Surgery of the Spine
DX: Z01.812 Encounter for preprocedural laboratory examination (principal); M25.50 Pain in unspecified joint; Z79.01 Long term (current) use of anticoagulants
CPT/HCPCS: 36415; 85610

== ENCOUNTER → 2018-03-11 | Day surgery (SDC) | payer MEDICARE ==
[~2018-03-11] VITALS: Ht 177.8 cm; Wt 118.0 kg
[~2018-03-11] MED LIST changes: +ACETAMINOPHEN 1000 MG/100 ML 100 ML IV ONE; +ACETAMINOPHEN/HYDROcodone 325 MG/7.5 MG TAB PO PRN; +BETAMETHASONE SOD PHOS/ACETATE SUSP 30 MG/5 ML VIAL ONE; +BUPIVACAINE/EPINEPHRINE 0.25% 50 ML VIAL ONE; +CHLORHEXIDINE GLUCONATE 2 % 1 PACK (2 CLOTHS) TOPICAL PRN; +CHLORHEXIDINE GLUCONATE 4% SOLN 120 ML BTL TOPICAL SCH; +DEXAMETHASONE SOD PHOS 4 MG/ML VIAL IV ONE; +DO NOT ADM ANY ANTICOAGULANT DRUGS PRN; +GELATIN 12 MM/7 MM FOAM ONE; +GENTAMICIN SULFATE 80 MG/2 ML VIAL ONE; +GLYCOPYRROLATE 1 MG/5 ML SYRINGE IV PUSH ONE; +INSULIN HUMAN REGULAR 1,000 UNITS/10 ML VIAL ONE; +INSULIN HUMAN REGULAR 1,000 UNITS/10 ML VIAL SQ PRN; +KETAMINE HCL 50 MG/5 ML SYRINGE ONE; +LABETALOL HCL 100 MG/20 ML VIAL IV ONE; +LACTATED RINGER'S 1000 ML INJ 1,000 ML IV ONE; +LACTATED RINGER'S 1000 ML IV PRN; +LIDOCAINE HCL 1% PF 5 ML SYRINGE OTHER ONE; +METOPROLOL TARTRATE 25 MG TAB PO PRN; +MIDAZOLAM HCL 2 MG/2 ML VIAL ONE; +NEOSTIGMINE 5 MG/5 ML SYRINGE IV PUSH ONE; +ONDANSETRON HCL 4 MG/2 ML VIAL IV ONE; +PHENYLEPH/NS 1000 MCG/10 ML SYR IV ONE; +PHENYLEPHRINE HCL 10 MG/ML VIAL IV ONE; +POVIDONE IODINE 5% (ANTISEPSIS KIT) 4 APPLICATIONS EACH NARE PRN; +PROPOFOL 200 MG/20 ML AMP IV ONE; +PROPOFOL 500 MG/50 ML INJ 200 ML ONE; +ROCURONIUM INJ 50 MG/5 ML SYRINGE IV PUSH ONE; +SODIUM CHLORID 0.9% 500 ML IV PRN; +SODIUM CHLORIDE 10 ML FLUSH BID IV FLUSH SCH; +SODIUM CHLORIDE 10 ML FLUSH PRN IV FLUSH; +ceFAZolin 2 GM PREMIX 50 ML IV SCH; +ceFAZolin INJ 1,000 MG VIAL IV ONE; +ceFAZolin INJ 1,000 MG VIAL ONE; +ePHEDrine/NS 25 MG/5 ML SYRINGE IV ONE
[2018-03-11 07:49] LABS: PROTHROMBIN TIME - PATIENT 11.1 SEC (9.8-11.6)
[2018-03-11 07:50] LABS: INTERNATIONAL NORMALIZED RATIO 1.1 RATIO
--- NOTE | 2018-03-11 11:19 | PD.OP ---
cc: Antonio Parekh MD Operative Report Date of Surgery: Mar 11, 2018 Preoperative Diagnosis: Lumbar spinal stenosis, L4-5. Bilateral lumbosacral radiculopathy Postoperative Diagnosis: Same Procedure: Bilateral lumbar laminectomy from the left L4, L5 with bilateral lateral recess decompression. Use of dilation port and microscope Anesthesia: General Surgeon: Antonio Parekh Implementation Engineer(s): LEEROY Culp Operation and Findings: EBL: 50 cc INDICATION: This patient is a 72-year-old male with significant back and leg pain with weakness. Investigative studies shows evidence of moderate to severe spinal stenosis at L4-5. Despite conservative care, the patient continued be painful and symptomatic. He presents for surgical treatment. NOTE: Blessing Culp PA-C was present for the entire surgical procedure as my care management assistant. In my medical opinion her skill and care was necessary for the proper management of this patient. PROCEDURE: The patient was brought to the operating room and anesthetized in the supine position. The patient was rolled to a prone position on a Herrera frame on a Edgardo table. All pressure points were protected in the back was scrubbed with alcohol followed by Hibiclens followed by ChloraPrep and draped sterilely. A timeout was done and antibiotics were given. AP and lateral radiographic images were used to identify the proper levels and perform skin markings. We started from the left side at the L4-5 level. A paramedian incision was made and an off-midline fascial incision was made. A dilating system was placed down to the interlaminar space and held provisionally to the side of the table. The microscope was brought into the field. A high-speed bur under the microscope was used to perform a bilateral laminectomy from that side. A lateral recess decompression bilaterally was accomplished using straight and angled Kerrison punches. A partial medial facetectomy was accomplished. The crossing and exiting nerve roots were completely decompressed. The wound was irrigated copiously. Hemostasis was controlled. The deep fascia was approximated with interrupted 0 Vicryl suture subcutaneous suture with 2-0 Vicryl suture and skin with running intradermal 3-0 Vicryl followed by Dermabond. A field block with local anesthesia was utilized. A sterile dressing was applied. The sponge count and needle counts and instrument counts were all correct. The patient tolerated the procedure well as taken to the recovery room in satisfactory condition. FINDINGS: There was moderate to severe bilateral lateral recess stenosis worse at just below the disc space. The decompression was felt to be very satisfactory. There was no complication that was appreciated. There was no leak of cerebral spinal fluid Antonio Parekh MD Mar 11, 2018 11:19
[2018-03-11 13:27] VITALS: BP 147/69; PULSE 71; RESP 18; TEMP 98.5; O2SAT 95
--- NOTE | 2018-03-11 15:23 | RADRPT ---
EXAM DATE: 03/11/2018 3:19 PM EDT AGE/SEX: 72 years / Male INDICATIONS: L4-5 Laminectomy. CLINICAL DATA: This is the patient's initial encounter. Patient reports that signs and symptoms have been present for 1 day and indicates a pain score of Nonresponsive. MEDICAL/SURGICAL HISTORY: Hypertension. Diabetes mellitus type II. Chronic obstructive pulmon emma disease. Congestive heart failure. A-Fib. Coronary artery stent. COMPARISON: No prior exams available for comparison. FINDINGS: Single lateral spot fluoroscopic image obtained in the operating room during a procedure demonstrates an instrument overlying the posterior elements at the L4-L5 level. CONCLUSION: Metallic instrument overlies the posterior elements at the L4-L5 level. Electronically signed by: Danie Overton MD 03/11/2018 3:22 PM EDT
== END | disposition home or self-care (01) ==
LOC: HSDC 06:55
PROVIDERS: ATTEND Orthopaedic Surgery Orthopaedic Surgery of the Spine
DX: M48.061 Spinal stenosis, lumbar region without neurogenic claudication (principal); M54.17 Radiculopathy, lumbosacral region; I11.0 Hypertensive heart disease with heart failure; I50.9 Heart failure, unspecified; I48.91 Unspecified atrial fibrillation; E11.9 Type 2 diabetes mellitus without complications; J44.9 Chronic obstructive pulmonary disease, unspecified; Z95.5 Presence of coronary angioplasty implant and graft; Z79.4 Long term (current) use of insulin
CPT/HCPCS: 00630; 63047; 72020; 76000; 85610; J0131; J0690; J1100; J1580; J1815; J2250; J2370; J2405; J2710; J3010; J7120; J0702